=== PATIENT | female | born 1975 | race Asian ===

== ENCOUNTER 2019-06-24 18:30 | Emergency (ER) | payer SELFPAY ==
[2019-06-24 18:37] VITALS: BP 143/95; PULSE 90; RESP 16; TEMP 36.6; O2SAT 98
--- NOTE | 2019-06-24 18:53 | ED.ANIMALBIT ---
HPI - Animal Bite General Chief Complaint: Extremity Injury, Upper Stated Complaint: Dog bite left wrist Time Seen by Provider: 06/24/19 18:48 Source: patient Mode of arrival: Ambulatory Limitations: no limitations History of Present Illness HPI narrative: 44-year-old female here for evaluation of a dog bite to her left forearm. Patient states that it was her dog that bit her. She states that her dog is up-to-date on immunizations. She was trying to break up a fight between her dog and another dog when her dog better. She did wash it out prior to arrival. She thinks her last tetanus shot was greater than 5 years ago. Related Data Previous Rx's Medication Instructions Recorded amoxicillin-pot clavulanate 1 tab PO BID 7 Days #14 tab 06/24/19 [Augmentin] Allergies Allergy/AdvReac Type Severity Reaction Status Date / Time No Known Drug Allergies Allergy Verified 06/24/19 18:46 Review of Systems Constitutional Constitutional: Denies fever(s) Musculoskeletal Musculoskeletal: Denies tingling Comments: No left elbow in a left wrist no left hand symptoms Integumentary/Breasts Comments: Cut to left forearm Neurologic Neurologic: Denies tingling Hematologic/Lymphatic Hematologic/Lymphatic: Denies easy bleeding and Denies easy bruising Patient History Medical History Patient denies medical problems (Acute) Social History Smoking Status: Current every day smoker tobacco type: cigarettes alcohol intake frequency: 0-2 drinks per day Alcohol type: beer Substance Use Type: does not use Exam Initial Vital Signs Initial Vital Signs: Vital Signs Temperature 97.8 F 06/24/19 18:37 Pulse Rate 90 06/24/19 18:37 Respiratory Rate 16 06/24/19 18:37 Blood Pressure 143/95 H 06/24/19 18:37 Pulse Oximetry 98 06/24/19 18:37 Const General: cooperative, comfortable and well developed Cardio Pulses: radial pulses present on the left Skin Other: Patient with a 1 cm x 1 cm ?V? shaped laceration to the volar aspect left forearm. No active bleeding. Neuro Sensory Exam: no sensory deficits noted Extrem General: normal to inspection and capillary refill normal Other: Left elbow left wrist unremarkable. Patient able to flex the left wrist and there is no tendon injury through the laceration on the forearm. Psych Appearance: grossly normal and well kempt Procedures Laceration Repair Laceration 1: Site: upper extremity Side (If applicable): left Size (cm): 2 Description: irregular Depth: simple, single layer Local Anesthetic: lidocaine 1% Amount of anesthesia used (mL): 2 Pre-repair: wound explored, irrigated extensively and deep structures intact Skin layer closed with: nylon Size (cm): 4-0 Number of sutures: 3 Technique: simple, interrupted Course Orders Ordered: Discontinued Medications Bacitracin (Bacitracin) 1 applic TOP NOW ONE Stop: 06/24/19 19:07 Last Admin: 06/24/19 19:15 Dose: 1 applic Documented by: NADEGE Diphtheria/Tetanus/Acell Pertussis (Adacel) 0.5 ml IM .ONCE ONE Stop: 06/24/19 18:49 Last Admin: 06/24/19 18:57 Dose: 0.5 ml Documented by: NADEGE Lidocaine HCl (Xylocaine 1% (Pf)) 2 ml INJ NOW ONE Stop: 06/24/19 18:53 Last Admin: 06/24/19 18:57 Dose: 2 ml Documented by: NADEGE Vital Signs Vital signs: Vital Signs - 8 hr 06/24/19 18:37 Temperature 97.8 F Pulse Rate 90 Respiratory Rate 16 Blood Pressure 143/95 H Pulse Oximetry 98 MDM - Animal Bite MDM Narrative Medical decision making narrative: Patient's tetanus is updated. She declined the offer of an x-ray to evaluate for any foreign body. Laceration was closed described above. Patient was informed that she would have a scar. She was given care instructions and return precautions. Do the location of the wound the fact that was a dog bite will start her on antibiotics. She is given a prescription for this. Patient's rest understanding and agreement with plan. Discharge Plan Departure Patient Disposition: Home Clinical Impression: Dog bite Qualifiers: Encounter type: initial encounter Qualified Code(s): W54.0XXA - Bitten by dog, initial encounter Discharge Date/Time: 06/24/19 19:20 Instructions: DI for Dog Bite Activity Restrictions/Additional Instructions: Keep the bandage on for the next 24 hours. After that you can take it off. You can wash your arm like normal. You can use soap and water. The stitches do need to come out in 7-10 days. Take the antibiotics as directed. Return to the emergency department for any new or worsening symptoms Prescriptions: New amoxicillin-pot clavulanate [Augmentin] 875-125 mg tablet 1 tab PO BID 7 Days Qty: 14 RF: 0
[2019-06-24] MEDS: LIDOCAINE 1% (PF) 2 ML INJ (18:57)
[2019-06-24] MEDS: TET,DIPH,PERTUSS(ACELL),VAC/PF 0.5 ML SYRINGE IM (18:57)
[2019-06-24] MEDS: BACITRACIN OINT 0.9 GM PCKT 1 APPLIC TOP (19:15)
--- NOTE | 2019-06-24 19:17 | PC.NURSE ---
Patient irrigated wound with soap and water prior to arrival. Had patient irrigate arm with soap and water in department too. Bleeding controlled. Sutured with three sutures by Dr Pinzon. Patient tolerated well
== END 2019-06-24 19:20 | disposition home or self-care (01) ==
PROVIDERS: Emergency Provider Emergency Medicine
DX: S51.852A Open bite of left forearm, initial encounter (principal); W54.0XXA Bitten by dog, initial encounter; Z23 Encounter for immunization
CPT/HCPCS: 12001; 90471; 99283; 90715